=== PATIENT | male | born 1960 | race Caucasian/White ===

== ENCOUNTER 2025-04-23 10:40 | Day surgery (SDC) | payer MEDICARE ==
[~2025-04-23] VITALS: Ht 185.4 cm; Wt 129.5 kg
[2025-04-23] VITALS (9 sets, daily range): BP systolic 92–106; BP diastolic 55–79; PULSE 60–64; RESP 14–17; TEMP 98.2; O2SAT 95
[2025-04-23] MEDS ORDERED: OXYGEN NASALCANN (11:33)
[2025-04-23] MEDS ORDERED: TRAZ-251 PO (11:34)
[2025-04-23] MEDS ORDERED: METO-411 PO (11:41)
[2025-04-23] MEDS ORDERED: METF-438 PO (11:41)
[2025-04-23] MEDS ORDERED: CITA20TA17 PO (11:42)
[2025-04-23] MEDS ORDERED: ATOR40TA72 PO (11:43)
[2025-04-23] MEDS ORDERED: PANT40TA54 PO (11:43)
[2025-04-23] MEDS ORDERED: FURO40TA4 PO (11:44)
[2025-04-23] MEDS ORDERED: LISI20TA28 PO (11:44)
[2025-04-23 11:45] LABS: CREATININE 1.35 MG/DL (0.60-1.10); TOTAL CARBON DIOXIDE 28.7 MMOL/L (24-32); eCRCL 61 ML/MIN; eGFR 53 ML/MIN
[2025-04-23] MEDS ORDERED: SPIR25TA5 PO (11:47)
[2025-04-23] MEDS ORDERED: AMIO200T72 PO (11:47)
[2025-04-23 11:48] LABS: APTT 31 SECONDS (22-32); INR 1.1 INR; MEAN PLATELET VOLUME 7.1 FL (7.4-10.4); RED CELL DISTRIBUTION WIDTH 15.3 % (11.5-14.5)
--- NOTE | 2025-04-23 12:18 | ELECTROCARDIOGRAPH REPORT ---
[facility] Test Date: 2025-04-23 Test Time: 12:18:00 Pat Name: JUAN GARCIA Department: [facility] Patient ID: [id number] Room: Gender: M Business Affairs Manager: YENIFER : 1960 Requested By: DELFINA CONTRERAS Order Number: [id number] Reading MD: Dr. DARIA Pendleton Measurements Intervals [place] Rate: 60 P: 53 NC: 134 QRS: 189 QRSD: 149 T: 80 QT: 478 QTc: 478 Interpretive Statements Atrial-ventricular dual-paced rhythm No further analysis attempted due to paced rhythm Electronically Signed On 04-24-2025 12:33:[address] DARIA Pendleton Please click the below link to view image of tracing.
[2025-04-23] MEDS ORDERED: fentaNYL/PF 50MCG/1 ML 2ML syringe ONE (13:04)
[2025-04-23] MEDS ORDERED: verapamil 2.5 mg/ml inj IV ONE (13:04)
[2025-04-23] MEDS ORDERED: midazolam 1 mg/ML 2ml injection ONE (13:04)
[2025-04-23] MEDS ORDERED: heparin 1,000unit/ml 10ml vial 10 ML ONE (13:04)
[2025-04-23] MEDS ORDERED: LIDOcaine 1% (10mg/ml) 2ml vial ONE (13:04)
[2025-04-23] MEDS ORDERED: HYDROcodone/acetaminophen 10/325mg tab PO PRN (14:30)
[2025-04-23] MEDS ORDERED: HYDROcodone/acetaminophen 5mg/325mg tablet PO PRN (14:30)
--- NOTE | 2025-04-23 14:53 | CARDIAC CATH REPORT ---
Cardiac Cath Report Providers to CC CC: DAVID CONTRERAS MD Procedure Comments: 1. Left Heart Catheterization 2. Selective Coronary Angiography 3. Right Radial Artery Access Brief History/Indications: 65yo man with HTN, HLD, HFrEF, CAD(s/p prior PCI LAD, RCA) with continued depressed LVEF referred for evaluation. Techniques: HEMODYNAMICS: LV: 103/5 mmHg LVEDP: 10 mmHg Ao: 103/67, MAP 80 mmHg CORONARY ARTERIES: Rt Dominant LMCA: Luminal Irregularities LAD: 100% ISR of ostial LAD stent. Fills via Lt-Lt and Rt-Lt collaterals D1: Ostial 80% stenosis LCx: Prox 30% stenosis. OM1: 100% occluded. Fills via Lt-Lt collaterals OM2: Luminal Irregularities OM3: Luminal Irregularities RCA: Patent [id number] RCA stents with mild-mod ISR PDA: Luminal Irregularities PL: Luminal Irregularities Findings Findings: 1. Multivessel CAD with 100% occluded ostal LAD, OM1 and 80% D1 stenosis 2. RRA Access, closed with VascBand RECOMMENDATIONS: 1. Recommend CT surgery evaluation given 100% ISR of ostial LAD stent and depressed LVEF 2. Cont uptitration of max-tolerated GDMT DELFINA CONTRERAS MD Apr 23, 2025 14:53
== END 2025-04-23 17:15 | disposition home or self-care (01) ==
LOC: SSTAY O 10:40
PROVIDERS: ATTEND Student in an Organized Health Care Education/Training Program
DX: I25.10 Atherosclerotic heart disease of native coronary artery without angina pectoris (principal); I11.0 Hypertensive heart disease with heart failure; I48.91 Unspecified atrial fibrillation; I50.22 Chronic systolic (congestive) heart failure; E11.9 Type 2 diabetes mellitus without complications; Z79.899 Other long term (current) drug therapy; Z98.890 Other specified postprocedural states; Z88.8 Allergy status to other drugs, medicaments and biological substances
CPT/HCPCS: 36415; 80048; 85025; 85610; 85730; 93005; 93458; 99152; 99153; A4615; A6258; A6402; C1894; J1644; J2003; J2250; J3010; J3490; J7030; Q0163; Q9967; Z7610

== ENCOUNTER 2025-05-27 09:44 | Inpatient (IN) | payer MEDICARE ==
[2025-05-26 13:36] LABS: MEAN PLATELET VOLUME 6.8 FL (7.4-10.4); PRE OP HEMATOCRIT 50.4 % (42.0-52.0); PRE OP HEMOGLOBIN 17.1 g/dL (14.0-17.9); PRE OP PLATELET COUNT 278 X10'3 (140-440); PRE OP WHITE BLOOD COUNT 11.0 10'3 (4.8-10.8); RED CELL DISTRIBUTION WIDTH 14.4 % (11.5-14.5)
[2025-05-26 13:38] LABS: LEUKOCYTE ESTERASE ,URINE NEGATIVE (Neg); NITRITES, URINE NEGATIVE (Neg); OCCULT BLOOD,URINE NEGATIVE (Neg)
--- NOTE | 2025-05-26 13:41 | ELECTROCARDIOGRAPH REPORT ---
[facility] Test Date: 2025-05-26 Test Time: 13:40:13 Pat Name: JUAN GARCIA Department: PRE/OP CARDIOLOGY Room: [facility] 2008 Gender: M Director Digital Sales: zack : 1960 Requested By: MAXIMO DENNIS Order Number: [id number] Reading MD: Dr. DARIA Pendleton Measurements Intervals [place] Rate: 66 P: 19 AK: 175 QRS: 184 QRSD: 152 T: 94 QT: 447 QTc: 469 Interpretive Statements Atrial-sensed ventricular-paced complexes No further analysis attempted due to paced rhythm Electronically Signed On 05-28-2025 20:18:[address] DARIA Pendleton Please click the below link to view image of tracing.
[2025-05-26 13:43] LABS: UA COLLECTION TYPE CLN CATCH MIDSTREAM
[2025-05-26 13:50] LABS: PRE OP INR 1.0 INR; PRE OP PARTIAL THROMB. TIME 32.0 SECONDS (22-32); PRE OP PROTIME 10.5 SECONDS (9.0-12.0)
[2025-05-26 13:53] LABS: CREATININE 1.47 MG/DL (0.60-1.10); PRE OP ALT 31 U/L (30-65); PRE OP ANION GAP 6 (8-16); PRE OP AST 17 U/L (10-37); PRE OP BILIRUB, TOTAL 0.6 MG/DL (0.0-1.0); PRE OP GLUCOSE 110 MG/DL (70-104); PRE OP POTASSIUM 3.8 MMOL/L (3.4-5.1); PRE OP SODIUM 138 MMOL/L (135-145); TOTAL CARBON DIOXIDE 33.5 MMOL/L (24-32); eGFR 48 ML/MIN
[2025-05-26 14:11] LABS: ABG BASE EXCESS 3.3 mmol/L (-2.0-3.0); ABG HCO3 26.6 mmol/L (21.0-28.0); ABG OXYGEN SATURATION 88.5 % (94.0-98.0); ABG PCO2 (T) 36.5 mmHg (35.0-48.0); ABG PH (T) 7.480 (7.350-7.450); ABG PO2 (T) 52.0 mmHg (83.0-108.0); ALLEN'S TEST POSITIVE; FCOHb 0.7 % (0.5-1.5); FHHb 11.4 % (0.0-5.0); FIO2 21.0 mmHg/%; FMetHb 0.3 % (0.0-1.5); FO2Hb 87.6 % (94.0-98.0); MODE ROOM AIR; PATIENT TEMPERATURE 37.0; TOTAL HEMOGLOBIN 17.4 G/dl (13.5-17.5)
--- NOTE | 2025-05-26 14:21 | RADIOLOGY REPORT ---
EXAM: DI CHEST,TWO VIEWS CLINICAL HISTORY: Pain COMPARISON: None TECHNIQUE: Frontal and lateral view of the chest was obtained FINDINGS: Lines and Tubes: Cardiac pacemaker projects over left chest wall. Lungs: No focal consolidation. Pleura: No effusion. No pneumothorax. Cardiomediastinal contours: Unremarkable Bones: No acute osseous abnormality. IMPRESSION: No acute cardiopulmonary disease.
[2025-05-26 14:22] VITALS: PULSE 60; RESP 15; O2SAT 89
--- NOTE | 2025-05-26 15:04 | PROCEDURE NOTE - Respiratory ---
Procedure Note-Respiratory Providers to CC Copies To 1: MAXIMO DENNIS III, MD Procedure Name: This is a spirometry study dated May 26 2025. Spirometry measurements: There is slight reduction in both the forced vital capacity and the FEV1 measurements. The FEV1 ratio is somewhat elevated. Several of the flow rate measurements are showing reduction. Bronchodilator was not given as part of the study. Conclusion: This study shows abnormality. There is a mixed picture which includes elements of both mild obstructive ventilatory defect together with mild restrictive ventilatory defect. We have no previous studies for comparison. An arterial blood gas was drawn from this patient while the patient was breathing ambient air. The blood pH shows borderline alkalosis. The pCO2 is normal. There is significant room air hypoxemia with the room air measuring at 52 mmHg. Also noted is borderline polycythemia with the hemoglobin measuring at 17.4 grams/deciliter. MIRANDA SPENCER MD May 26, 2025 15:04
--- NOTE | 2025-05-26 17:16 | VASCULAR REPORT ---
BILATERAL LOWER EXTREMITY VENOUS DUPLEX REASON FOR EXAM: Preoperative venous mapping. TECHNIQUE: Grayscale and duplex imaging of the bilateral lower extremities is performed. COMPARISON: None FINDINGS: The bilateral great saphenous veins are compressible and demonstrate normal color Doppler s ignal. Measurements of the right great saphenous vein is as follows: Upper Thigh: 4 mm diameter Lower Thigh: 4 mm diameter Upper Calf: 3 mm diameter Lower Calf: 3 mm diameter Measurements of the left great saphenous vein is as follows: Upper Thigh: 3 mm diameter Lower Thigh: Branches into numerous small branches in the mid thigh measuring 2 mm or less. IMPRESSION: No evidence of great saphenous vein thrombosis. GSV measurement as listed above.
--- NOTE | 2025-05-26 19:50 | VASCULAR REPORT ---
CAROTID DOPPLER ULTRASOUND HISTORY: Preop COMPARISON: None TECHNIQUE: Real time hernandez scale, color Doppler, and spectral duplex images are obtained through the c arotid and vertebral arteries. Findings: Peak systolic velocity right internal carotid artery is 62 cm/s and right common carotid artery is 53 cm/s. Ratio is 1.07. Antegrade flow noted in right vertebral artery. Mild atherosclerotic plaque not ed within the right carotid arterial system. Peak systolic velocity left internal carotid artery is 58 cm/s and left common carotid artery is 115 cm/s. Ratio is 0.8. Antegrade flow noted in left vertebral artery. [id number] atherosclerotic p laque noted within the left carotid arterial system. Impression: 1. No evidence of hemodynamically significant stenosis within the bilateral carotid arterial systems. 2. Antegrade flow within bilateral vertebral arteries.
[2025-05-27] VITALS (12 sets, daily range): BP systolic 99–118; BP diastolic 44–72; PULSE 60–134; RESP 14–31; TEMP 97.5; O2SAT 90–97
[~2025-05-27] VITALS: Ht 185.4 cm; Wt 133.0 kg
[2025-05-27] MEDS: Cefazolin 3 GM/100ML NS IVPB 100 ML IV ONE (05:30)
[2025-05-27] MEDS: metoprolol tartrate 12.5mg (1/2 tablet) PO ONE (05:30)
[~2025-05-27 09:44] MED LIST: ATOR40TA72 PO; BUPIVAcaine 0.5% inj/PF 30 ML ONE; CITA20TA17 PO; FURO40TA4 PO; Insulin Reg/NS 100units/100mL 100 ML IV SCH; LISI20TA28 PO; METF-438 PO; METO-411 PO; OXYGEN NASALCANN; PANT40TA54 PO; SPIR25TA5 PO; TRAZ-251 PO; dextrose 50%-water 50ml dispensing syringe IV PRN; insulin glargine (Lantus) pen - multi-dose SQ PRN; vancomycin 1,000mg inj ONE
[2025-05-27] MEDS: ringers solution, lacted 1,000 ML IV SCH (10:32)
[2025-05-27] MEDS: mupirocin 2% nasal ointment 1gm UD NS ONE (10:32)
[2025-05-27] MEDS: VANCOMYCIN/H2O 1.5g/300mL PB 300 ML IV ONE (10:33)
[2025-05-27] MEDS: midazolam 1 mg/ML 2ml injection IV ONE (12:25)
[2025-05-27] MEDS ORDERED: SUfentanil 50mcg/ml 1ml amp IV ONE (13:27)
[2025-05-27] MEDS ORDERED: MIDAZolam 1mg/ml 10ml vial ONE (13:27)
[2025-05-27 14:12] LABS: ABG BASE EXCESS -1.3 mmol/L (-2.0-3.0); ABG HCO3 25.1 mmol/L (21.0-28.0); ABG OXYGEN SATURATION 95.5 % (94.0-98.0); ABG PCO2 48.2 mmHg (35.0-48.0); ABG PH 7.335 (7.350-7.450); ABG PO2 83.4 mmHg (83.0-108.0); CL (ABG) 102 mmol/L (98-107); FCOHb 0.9 % (0.5-1.5); FHHb 4.4 % (0.0-5.0); FMetHb 0.3 % (0.0-1.5); FO2Hb 94.4 % (94.0-98.0); GLUCOSE (ABG) 118 mg/dl (65-95); IONIZED CA (ABG) 1.15 mmol/L (1.15-1.33); K (ABG) 4.0 mmol/L (3.40-4.50); TOTAL HEMOGLOBIN 16.3 G/dl (13.5-17.5)
[2025-05-27 14:38] LABS: ACT @ 1.70 U 307 SEC (193-297); ACT @ 2.84 U 487 SEC (260-420); BASELINE ACT 138 SEC (101-148); PATIENT WEIGHT 131.0 KG
[2025-05-27 15:03] LABS: ABG BASE EXCESS VENOUS -0.2 mmol/L (-2.0-3.0); ABG HCO3 VENOUS 26.1 mmol/L (22.0-29.0); ABG OXYGEN SATURATION VENOUS 82.8 % (60.0-85.0); ABG PCO2 VENOUS 49.3 mmHg (38.0-54.0); ABG PH (VENOUS) 7.341 (7.320-7.430); ABG PO2 VENOUS 49.5 mmHg (23.0-48.0); CL (ABG) 100 mmol/L (98-107); FCOHb VENOUS 0.2 % (0.5-1.5); FHHb VENOUS 17.1 %; FMetHb VENOUS 0.3 % (0.5-1.5); FO2Hb VENOUS 82.4 % (0-80.0); GLUCOSE (ABG) 113 mg/dl (65-95); IONIZED CA (ABG) 0.96 mmol/L (1.15-1.33); K (ABG) 3.6 mmol/L (3.40-4.50); TOTAL HEMOGLOBIN 11.8 G/dl (13.5-17.5)
[2025-05-27 15:07] LABS: ABG BASE EXCESS -0.3 mmol/L (-2.0-3.0); ABG HCO3 25.5 mmol/L (21.0-28.0); ABG OXYGEN SATURATION 99.5 % (94.0-98.0); ABG PCO2 46.4 mmHg (35.0-48.0); ABG PH 7.358 (7.350-7.450); CL (ABG) 102 mmol/L (98-107); FCOHb 0.1 % (0.5-1.5); FHHb 0.5 % (0.0-5.0); FMetHb 0.3 % (0.0-1.5); FO2Hb 99.1 % (94.0-98.0); GLUCOSE (ABG) 116 mg/dl (65-95); IONIZED CA (ABG) 1.02 mmol/L (1.15-1.33); K (ABG) 3.5 mmol/L (3.40-4.50); TOTAL HEMOGLOBIN 12.0 G/dl (13.5-17.5)
[2025-05-27 15:40] LABS: ABG BASE EXCESS -1.6 mmol/L (-2.0-3.0); ABG HCO3 23.6 mmol/L (21.0-28.0); ABG OXYGEN SATURATION 99.4 % (94.0-98.0); ABG PCO2 41.6 mmHg (35.0-48.0); ABG PH 7.371 (7.350-7.450); ABG PO2 282.7 mmHg (83.0-108.0); CL (ABG) 101 mmol/L (98-107); FCOHb 0.1 % (0.5-1.5); FHHb 0.6 % (0.0-5.0); FMetHb 0.1 % (0.0-1.5); FO2Hb 99.2 % (94.0-98.0); GLUCOSE (ABG) 135 mg/dl (65-95); IONIZED CA (ABG) 1.03 mmol/L (1.15-1.33); K (ABG) 4.0 mmol/L (3.40-4.50); TOTAL HEMOGLOBIN 13.3 G/dl (13.5-17.5)
[2025-05-27 15:52] LABS: ACTIVATED CLOTTING TIME 710.0 SEC (101-148)
[2025-05-27 16:05] LABS: ABG BASE EXCESS -2.6 mmol/L (-2.0-3.0); ABG HCO3 22.9 mmol/L (21.0-28.0); ABG OXYGEN SATURATION 99.3 % (94.0-98.0); ABG PCO2 42.6 mmHg (35.0-48.0); ABG PH 7.349 (7.350-7.450); ABG PO2 277.8 mmHg (83.0-108.0); CL (ABG) 102 mmol/L (98-107); FCOHb 0.1 % (0.5-1.5); FHHb 0.7 % (0.0-5.0); FMetHb 0.2 % (0.0-1.5); FO2Hb 99.0 % (94.0-98.0); GLUCOSE (ABG) 157 mg/dl (65-95); IONIZED CA (ABG) 1.03 mmol/L (1.15-1.33); K (ABG) 3.9 mmol/L (3.40-4.50); TOTAL HEMOGLOBIN 13.4 G/dl (13.5-17.5)
[2025-05-27 16:16] LABS: ACTIVATED CLOTTING TIME 584.0 SEC (101-148)
[2025-05-27 16:30] LABS: ABG BASE EXCESS 0.0 mmol/L (-2.0-3.0); ABG HCO3 25.7 mmol/L (21.0-28.0); ABG OXYGEN SATURATION 99.2 % (94.0-98.0); ABG PCO2 46.0 mmHg (35.0-48.0); ABG PH 7.365 (7.350-7.450); ABG PO2 241.6 mmHg (83.0-108.0); CL (ABG) 101 mmol/L (98-107); FCOHb 0.2 % (0.5-1.5); FHHb 0.8 % (0.0-5.0); FMetHb 0.2 % (0.0-1.5); FO2Hb 98.8 % (94.0-98.0); GLUCOSE (ABG) 176 mg/dl (65-95); IONIZED CA (ABG) 1.23 mmol/L (1.15-1.33); K (ABG) 3.8 mmol/L (3.40-4.50); TOTAL HEMOGLOBIN 13.2 G/dl (13.5-17.5)
[2025-05-27 17:06] LABS: ABG BASE EXCESS -0.9 mmol/L (-2.0-3.0); ABG HCO3 25.6 mmol/L (21.0-28.0); ABG PCO2 50.3 mmHg (35.0-48.0); ABG PH 7.324 (7.350-7.450); CL (ABG) 103 mmol/L (98-107); FCOHb 0.4 % (0.5-1.5); FHHb 19.5 % (0.0-5.0); FMetHb 0.2 % (0.0-1.5); FO2Hb 79.9 % (94.0-98.0); GLUCOSE (ABG) 174 mg/dl (65-95); IONIZED CA (ABG) 1.23 mmol/L (1.15-1.33); K (ABG) 3.4 mmol/L (3.40-4.50); TOTAL HEMOGLOBIN 12.2 G/dl (13.5-17.5)
[2025-05-27 17:09] LABS: ACTIVATED CLOTTING TIME 105 SEC (101-148)
[2025-05-27 17:16] LABS: MEAN PLATELET VOLUME 6.7 FL (7.4-10.4); RED CELL DISTRIBUTION WIDTH 14.2 % (11.5-14.5)
[2025-05-27] MEDS: Insulin Reg/NS 100units/100mL 100 ML IV SCH ×2 (17:30→17:56)
[2025-05-27] MEDS ORDERED: bisacodyl 10mg suppository rectal RC PRN (17:30)
[2025-05-27] MEDS ORDERED: HYDROcodone/acetaminophen 10/325mg tab PO PRN ×2 (17:30)
[2025-05-27] MEDS ORDERED: magnesium hydroxide 30ml (MOM) UD suspension PO PRN (17:30)
[2025-05-27] MEDS ORDERED: potassium Cl 40MEQ/270ML bag 250 ML IV PRN (17:30)
[2025-05-27] MEDS ORDERED: insulin glargine (Lantus) pen - multi-dose SQ PRN (17:30)
[2025-05-27] MEDS ORDERED: potassium Cl 40MEQ/1/2NS 520ml 520 ML IV PRN (17:30)
[2025-05-27] MEDS ORDERED: ondansetron/PF 4mg/2ml inj IV PRN (17:30)
[2025-05-27] MEDS ORDERED: potassium CL 10mEq/100ml bag 100 ML IV PRN (17:30)
[2025-05-27] MEDS ORDERED: sodium phosphate inj. 30 MMOL in dextrose 5%-water 250 ML IV PRN (17:30)
[2025-05-27] MEDS ORDERED: dextrose 50%-water 50ml dispensing syringe IV PRN (17:30)
[2025-05-27] MEDS ORDERED: niCARDipine-NS 40mg/200ml IVPB 200 ML IV PRN (17:30)
[2025-05-27] MEDS ORDERED: morphine 4 MG/ML inj SYRINge IV PRN (17:30)
[2025-05-27] MEDS ORDERED: potassium Cl 20 mEq SR tablet PO PRN (17:30)
[2025-05-27] MEDS ORDERED: metoclopramide 5 mg/ml inj IV PRN (17:30)
[2025-05-27] MEDS: nitroGLYCERIN-Tridil 50MG/D5W 250 ML IV SCH (17:30)
[2025-05-27] MEDS ORDERED: mineral oil 133ml enema RC PRN (17:30)
--- NOTE | 2025-05-27 17:41 | POSTOPERATIVE RECORDS ---
Postoperative Records Providers to CC ~ Date of Procedure: May 27, 2025 Problems: (1) Severe pulmonary hypertension (2) Coronary artery disease (3) Chronic left ventricular systolic heart failure Post-Operative Diagnosis SAME as PRE-Op Procedure Performed CABGx4,BAEZ Surgeon: Dr. Silvano Palacios Vinyl Cutter Dr. Alexander Matthew and Forest Hahn PA-C Anesthesiologist: Reinaldo Ndiaye Type of Anesthesia: General Findings: Systemic pulmonary hypertension with severe left ventricular dysfunction. Vein was of adequate size. RICARDO was a 2 mm vessel with satisfactory flow. The LAD was a heavily diseased 2 mm vessel as was the diagonal the ramus was a 1.5 mm vessel and heavily diseased and the PDA was a 2-1/2 mm vessel moderately diseased. the patient had anterior apical scarring and thinning. Complications None Estimated Blood Loss: 200 mL Specimen Removed: None Counts reported as correct: Yes Visit Coding Cardiology Date of Service: May 27, 2025 Billing Provider: SILVANO PALACIOS III, MD Cardiology Evaluation and Elvia: NOT BILLABLE SILVANO PALACIOS III, MD May 27, 2025 17:41
[2025-05-27] MEDS ORDERED: propofol inj 20 ML IV ONE (17:47)
[2025-05-27] MEDS ORDERED: rocuronium 10mg/ml inj IV ONE ×3 (17:47)
[2025-05-27] MEDS ORDERED: ePHEDrine 50MG/ML INJ. ONE (17:47)
[2025-05-27] MEDS: DOCUMENT DATE & TIME OF BETA-BLOCKER PO ONE (17:49)
[2025-05-27 18:07] LABS: ABG BASE EXCESS 0.1 mmol/L (-2.0-3.0); ABG HCO3 26.6 mmol/L (21.0-28.0); ABG OXYGEN SATURATION 91.1 % (94.0-98.0); ABG PCO2 (T) 49.4 mmHg (35.0-48.0); ABG PH (T) 7.346 (7.350-7.450); ABG PO2 (T) 63.3 mmHg (83.0-108.0); FCOHb 1.1 % (0.5-1.5); FHHb 8.8 % (0.0-5.0); FIO2 80.0 mmHg/%; FMetHb 0.1 % (0.0-1.5); FO2Hb 90.0 % (94.0-98.0); MODE VENT - SIMV/VC; PATIENT TEMPERATURE 36.5; PEEP 5 cm H2O; RESPIRATORY RATE 14 b/min; TIDAL VOLUME 600 mL; TOTAL HEMOGLOBIN 12.9 G/dl (13.5-17.5)
--- NOTE | 2025-05-27 18:08 | ELECTROCARDIOGRAPH REPORT ---
[facility] Test Date: 2025-05-27 Test Time: 18:06:49 Pat Name: JUAN GARCIA Department: [facility] Patient ID: [id number] Room: [facility] 2008 A Gender: M Loan Teller: HOLLANDJACOB : 1960 Requested By: MAXIMO DENNIS Order Number: [id number] Reading MD: Dr. DARIA Pendleton Measurements Intervals [place] Rate: 118 P: 133 IA: 88 QRS: 226 QRSD: 128 T: 59 QT: 334 QTc: 469 Interpretive Statements Ventricular-paced rhythm No further analysis attempted due to paced rhythm Electronically Signed On 05-28-2025 20:19:[address] DARIA Pendleton Please click the below link to view image of tracing.
[2025-05-27] MEDS: propofol 1000mg/100ml bottle 100 ML IV ONE (18:13)
[2025-05-27] MEDS: albumin (Human) 5% 250ml 250 ML IV PRN (18:15)
[2025-05-27 18:16] LABS: MEAN PLATELET VOLUME 6.9 FL (7.4-10.4); RED CELL DISTRIBUTION WIDTH 14.7 % (11.5-14.5)
[2025-05-27 18:30] LABS: APTT 27 SECONDS (22-32); INR 1.3 INR
[2025-05-27 18:30] LABS: CREATININE 1.01 MG/DL (0.60-1.10); TOTAL CARBON DIOXIDE 27.0 MMOL/L (24-32); eCRCL 74 ML/MIN; eGFR 74 ML/MIN
[2025-05-27 18:36] LABS: PHOSPHORUS 2.9 MG/DL (2.3-4.5)
[2025-05-27] MEDS: FENTANYL-0.9 % NACL/PF 100 ML IV SCH (18:48)
[2025-05-27] MEDS: propofol 1000mg/100ml bottle 100 ML IV SCH (18:48)
--- NOTE | 2025-05-27 19:06 | RADIOLOGY REPORT ---
CHEST RADIOGRAPH Indication: POST OP Technique: Single frontal view of the chest was obtained Comparison: DI CHEST,TWO VIEWS on DOS: 05/26/25 FINDINGS: Lines and Tubes: Endotracheal tube, enteric catheter, right central venous catheter, mediastinal drai n and left chest tube in satisfactory position. Mobile-Jacqueline catheter overlies the right pulmonary arter y. Lungs: Multifocal airspace disease. Pleura: No effusion. No pneumothorax. Cardiomediastinal contours: Unremarkable Bones: No acute osseous abnormality. IMPRESSION: Mobile-Jacqueline catheter appears slightly deep projecting over the right main pulmonary artery. Reposition ing may be considered. Clinical correlation advised.
[2025-05-27] MEDS: magnesium sulf-water 4G/100mL 100 ML IV PRN (19:13)
[2025-05-27] MEDS: potassium Cl 20mEq/100mL bag 100 ML IV PRN (19:13)
[2025-05-27] MEDS: vancomycin/NS 1 GM ADD-VANTAGE 250 ML IV SCH (19:16)
[2025-05-27] MEDS: mupirocin 2% nasal ointment 1gm UD NS SCH (20:02)
[2025-05-27 20:05] LABS: ABG BASE EXCESS -1.9 mmol/L (-2.0-3.0); ABG HCO3 23.0 mmol/L (21.0-28.0); ABG OXYGEN SATURATION 96.8 % (94.0-98.0); ABG PCO2 (T) 38.3 mmHg (35.0-48.0); ABG PH (T) 7.393 (7.350-7.450); ABG PO2 (T) 86.7 mmHg (83.0-108.0); FCOHb 1.1 % (0.5-1.5); FHHb 3.2 % (0.0-5.0); FIO2 70.0 mmHg/%; FMetHb 0.3 % (0.0-1.5); FO2Hb 95.4 % (94.0-98.0); MODE SIMV; PATIENT TEMPERATURE 36.1; PEEP 8 cm H2O; RESPIRATORY RATE 16 b/min; TIDAL VOLUME 600 mL; TOTAL HEMOGLOBIN 12.3 G/dl (13.5-17.5)
[2025-05-27] MEDS: COMMUNICATION ORDER 1 EA MISC MC ONE (20:18)
[2025-05-27] MEDS: magnesium sulf-water 2g/50mL 50 ML IV PRN (20:39)
[2025-05-27 22:49] LABS: MEAN PLATELET VOLUME 6.7 FL (7.4-10.4); RED CELL DISTRIBUTION WIDTH 14.1 % (11.5-14.5)
[2025-05-27 23:03] LABS: CREATININE 1.38 MG/DL (0.60-1.10); PHOSPHORUS 1.7 MG/DL (2.3-4.5); TOTAL CARBON DIOXIDE 25.5 MMOL/L (24-32); eCRCL 60 ML/MIN; eGFR 52 ML/MIN
[2025-05-27] MEDS: ceFAZolin/D5W- 1GM premix 50 ML IV SCH (23:25)
[2025-05-27] MEDS: sodium phosphate in D5W IVPB 250 ML IV ONE (23:47)
[2025-05-27] MEDS: sodium phosphate inj. 15 MMOL in dextrose 5%-water 250 ML IV PRN (23:47)
[2025-05-28] VITALS (36 sets, daily range): BP systolic 98–129; BP diastolic 46–58; PULSE 77–119; RESP 16–35; O2SAT 90–97
[2025-05-28 01:39] LABS: MEAN PLATELET VOLUME 6.4 FL (7.4-10.4); RED CELL DISTRIBUTION WIDTH 14.0 % (11.5-14.5)
[2025-05-28 02:11] LABS: CREATININE 1.47 MG/DL (0.60-1.10); TOTAL CARBON DIOXIDE 23.8 MMOL/L (24-32); eCRCL 56 ML/MIN; eGFR 48 ML/MIN
[2025-05-28 03:13] LABS: PHOSPHORUS 1.8 MG/DL (2.3-4.5)
[2025-05-28 03:31] LABS: ABG BASE EXCESS -1.8 mmol/L (-2.0-3.0); ABG HCO3 23.1 mmol/L (21.0-28.0); ABG OXYGEN SATURATION 95.8 % (94.0-98.0); ABG PCO2 (T) 39.8 mmHg (35.0-48.0); ABG PH (T) 7.381 (7.350-7.450); ABG PO2 (T) 83.0 mmHg (83.0-108.0); FCOHb 0.7 % (0.5-1.5); FHHb 4.2 % (0.0-5.0); FIO2 65.0 mmHg/%; FMetHb 0.3 % (0.0-1.5); FO2Hb 94.8 % (94.0-98.0); MODE VENT - SIMV; PATIENT TEMPERATURE 37.2; PEEP 8 cm H2O; RESPIRATORY RATE 16 b/min; TIDAL VOLUME 600 mL; TOTAL HEMOGLOBIN 11.1 G/dl (13.5-17.5)
[2025-05-28] MEDS: albumin (Human) 5% 250ml 250 ML IV ONE ×3 (03:37→22:12)
[2025-05-28] MEDS: DOBUTamine-DoBUTrex 500mg/D5W 250 ML IV PRN (05:38)
--- NOTE | 2025-05-28 06:45 | RADIOLOGY REPORT ---
CHEST RADIOGRAPH Indication: POST OP Technique: Single frontal view of the chest was obtained Comparison: DI CHEST,SINGLE VIEW on DOS: 05/27/25, DI CHEST,TWO VIEWS on DOS: 05/26/25 FINDINGS: Lines and Tubes: The endotracheal tube terminates 9 cm above the nisa. Repositioning is recommende d. Left chest tube, right [place]-Jacqueline catheter with tip terminating in the region of the right pulmonar y artery and AICD as well as right central venous catheter are unchanged. The enteric tube courses be low the left hemidiaphragm and the tip extends outside the field of view. Lungs: Bilateral airspace disease is similar to prior study. Pleura: No effusion. No pneumothorax. Cardiomediastinal contours: Unremarkable Bones: No acute osseous abnormality. IMPRESSION: 1. Endotracheal tube terminates 9 cm above the nisa. Advancement is recommended. Labadie-Jacqueline cathete r tip terminates deep in the right atrium similar to prior study. Clinical correlation advised. 2. Bilateral airspace disease which may reflect edema or pneumonia similar to prior study.
[2025-05-28] MEDS: metoprolol tartrate 12.5mg (1/2 tablet) PO SCH (07:16)
--- NOTE | 2025-05-28 08:09 | PROGRESS NOTE ---
Progress Note CV Providers to CC ~ Antibiotics Ordered?: No Subjective Subjective S/P CABG x 4 POD # 1. Sedated, on vent as chest remains open. Fentanyl and propofol for pain/ sedation. Continues on dobutamine and some levophed. CO 9.3, CI 3.7. Creat 1.47 which was baseline. Objective Vitals Vital Signs Date Time Temp Pulse Resp B/P (MAP) Pulse Ox O2 Delivery O2 Flow Rate FiO2 05/28/25 07:09 93 35 96 60 05/28/25 05:00 98.8 107/49 (68) Mechanical Ventilator 106/48 (69) 05/26/25 14:22 0 Lab Results: 05/28/25 0130 05/28/25 0130 Objective Lungs - a few coarse BS Heart - RRR, SR Abd/extr - OK Incisions - Chest: Ioban intact, no blood collection noted. Coagulation Studies Laboratory Tests Test 05/27/25 14:18 05/27/25 17:05 05/27/25 17:13 05/27/25 17:20 Patient Sex (Coag) M Patient Height (Coag) 185cm Patient Weight (Coag) 131.0 KG Patient Blood Volume 8505 ML Pump Volume 1500 ML Total Blood Volume 14342 ML Projected Heparin Concentration 1.7 MG/KG Heparin [place] 146 Calculated Heparin Bolus 25871 UNITS Activated Coagulation Time Baseline 138 SEC (101-148) Activated Coag Time 1.70 U/mL 307 SEC (193-297) H Activated Coag Time 2.84 U/mL 487 SEC (260-420) H Coagulation Comments Coagulation Clinical Comments Heparin Level (COAG) 0 MG/KG Calculated Heparin Req (Hep Assay) 99891 UNITS Calculated Protamine Req (Hep Assay 0 MG Activated Clotting Time 105 SEC (101-148) Prothrombin Time 12.7 SECONDS (9.0-12.0) H INR International Normalized Ratio 1.3 INR Activated Partial Thromboplast Time 27 SECONDS (22-32) Fibrinogen 269 MG/DL (177-424) Cardiac Rhythm: Sinus Rhythm, V Paced Problem\Assessment\Plan Additional Plan POD # 1 Good CI on current Rx FiO2 60%. Preop room air PO2 52%. Planning for sternal closure. Sepsis Screening Reassessment Date: May 28, 2025 Supervising Co-signing Provider: VINCENZO Mg May 28, 2025 08:09
[2025-05-28 09:22] LABS: ABG OXYGEN SATURATION 80.4 % (94.0-98.0); ABG PO2 49.0 mmHg (83.0-108.0)
[2025-05-28 09:22] LABS: ABG PO2 313.0 mmHg (83.0-108.0)
--- NOTE | 2025-05-28 09:27 | CARDIOLOGY REPORT ---
APPROVED REPORT EXAM: Transesophageal echocardiogram with color flow Doppler. Study contains both pre- and post-op i magedavid. Patient Location: [facility] Blood Pressure: 110/43 mmHg Heart Rate: 90 bpm Indications Coronary Artery Disease CABG x 4 DANIEL Probe Passed by Oracio Ndiaye MD AERODYNAMIC CONSULTANT: Gita Pierce MD / Surgeon: Tawnya Palacios MD Previous Echo: , CVC, EF: 20-25; m TR; mod LAE LEFT VENTRICLE PRE-OP: Normal LV size and wall thickness. Overall systolic function is severely decreased. LVEF is 2 0%. POST-OP: LVEF is estimated at 20-25% with administration is Levophed at 0.05 mcg/kg/min. RIGHT VENTRICLE PRE-OP: RV is normal size and function. POST-OP: Unchanged. ATRIA PRE-OP: Left atrium appears moderately dilated. Left atrial appendage is visualized in multiple plane s and appears normal without debris. Left upper pulmonary vein identified and isolated by 2D and colo r Doppler. POST-OP: Unchanged. AORTIC VALVE PRE-OP: Trileaflet AV appears mildly sclerotic without stenosis. No insufficiency. POST-OP: Unchanged . MITRAL VALVE PRE-OP: Mild mitral annular calcification without stenosis. Mild to moderate regurgitation. POST-OP: Trace regurgitation present. TRICUSPID VALVE PRE-OP: The tricuspid valve is normal in structure with mild regurgitation. POST-OP: Trace regurgitat ion present. PULMONIC VALVE PRE-OP: The pulmonary valve is normal in structure with physiologic insufficiency. [place]-Jacqueline catheter in the right heart across the pulmonic valve. POST-OP: Unchanged. GREAT VESSELS PRE-OP: The aortic root is normal in size. POST-OP: Unchanged. PERICARDIUM PRE-OP: Normal pericardium. No effusion. POST-OP: Unchanged. CONCLUSION PRE-OP: Normal LV size and wall thickness. Overall systolic function is severely decreased. LVEF is 2 0%. POST-OP: LVEF is estimated at 20-25% with administration is Levophed at 0.05 mcg/kg/min. PRE-OP: RV is normal size and function. POST-OP: Unchanged. PRE-OP: Left atrium appears moderately dilated. L eft atrial appendage is visualized in multiple planes and appears normal without debris. Left upper p ulmonary vein identified and isolated by 2D and color Doppler. POST-OP: Unchanged. PRE-OP: Trileaflet AV appears mildly sclerotic without stenosis. No insufficiency. POST-OP: Unchanged. PRE-OP: Mild larry ral annular calcification without stenosis. Mild to moderate regurgitation. POST-OP: Trace regurgitat ion present. PRE-OP: The tricuspid valve is normal in structure with mild regurgitation. POST-OP: Tra ce regurgitation present. PRE-OP: Normal pericardium. No effusion. POST-OP: Unchanged. Conclusion PRE-OP: Normal LV size and wall thickness. Overall systolic function is severely decreased. LVEF is 20%. POST-OP: LVEF is estimated at 20-25% with administration is Levophed at 0.05 mcg/kg/min. PRE-OP: RV is normal size and function. POST-OP: Unchanged. PRE-OP: Left atrium appears moderately dilated. Left atrial appendage is visualized in multiple abel jeferson and appears normal without debris. Left upper pulmonary vein identified and isolated by 2D and co susu Doppler. POST-OP: Unchanged. PRE-OP: Trileaflet AV appears mildly sclerotic without stenosis. No insufficiency. POST-OP: Uncha nged. PRE-OP: Mild mitral annular calcification without stenosis. Mild to moderate regurgitation. POST-O P: Trace regurgitation present. PRE-OP: The tricuspid valve is normal in structure with mild regurgitation. POST-OP: Trace regurgi tation present. PRE-OP: Normal pericardium. No effusion. POST-OP: Unchanged.
[2025-05-28] MEDS: NORepinephrine 8mg/ 250ml NS 250 ML IV PRN (12:21)
[2025-05-28] MEDS ORDERED: vancomycin 1,000mg inj ONE (14:15)
[2025-05-28] MEDS ORDERED: isoflurane 100ml inhalation liquid IH ONE (14:50)
[2025-05-28] MEDS ORDERED: fentaNYL /PF 50mcg/ml 5ml ampule ONE (15:07)
[2025-05-28] MEDS ORDERED: MIDAZolam 1 MG/ML 5ML VIAL ONE (15:40)
[2025-05-28] MEDS ORDERED: rocuronium 10mg/ml inj IV ONE (15:41)
--- NOTE | 2025-05-28 16:08 | OPERATIVE REPORT ---
Operative Report Operative Report Cardiovascular surgery operative report 28 May 2025 Preoperative diagnosis: open sternum status post coronary artery bypass grafting, chronic atrial fibrillation Postop diagnosis: Same Procedure: Sternal closure, left atrial appendage clipping with 50 mm atrial clip Surgeon: Dr. Maximo Palacios patient care nursing assistant: Forest Hahn PA-C Anesthesia: General via endotracheal tube Complications: None EBL: 10 cc Procedure: The patient is taken to the operating room placed in supine posit ion. Following the administration of general anesthesia via the endotracheal tube the anterior chest and abdomen were prepped and draped sterilely. A sternal retractor was placed and any old clots within the mediastinum were irrigated free. The grafts were inspected. The vein grafts were widely patent. The left had a flow of 85-90 mL/minute with a PI of 2.9, the right graft had a PI of 1.7 with flows of 150. there was excellent flow in the RICARDO graft by Doppler. A lap was placed behind the left ventricle to expose the atrial appendage. It was sized and a 50 mm atrial clip was chosen. This was deployed across the base of the appendage for exclusion. The flap was then removed to allow the heart to was no more resume its normal position. The mediastinum was copiously irrigated with warm antibiotic solution. The chest was then closed by reapproximating the sternum in midline with interrupted [id number] of 7. Stainless steel wire as well as zip fix sternal bands. The midline fascia, subcutaneous tissue and skin were closed in layers. Sterile dressings were applied and the chest tube was attached to water-seal. The patient was then returned to the ICU in critical but stable condition, having tolerated the procedure satisfactorily. There were no complications. Sponge, needle and instrument counts were correct x2 at the end of the case. MAXIMO PALACIOS III, MD May 28, 2025 16:08
[2025-05-28 16:54] LABS: MEAN PLATELET VOLUME 7.1 FL (7.4-10.4); RED CELL DISTRIBUTION WIDTH 14.4 % (11.5-14.5)
--- NOTE | 2025-05-28 17:04 | RADIOLOGY REPORT ---
EXAM: DI CHEST,SINGLE VIEW HISTORY: post sternal closure COMPARISON: DI CHEST,SINGLE VIEW on DOS: 05/28/25, DI CHEST,SINGLE VIEW on DOS: 05/27/25, DI CHEST,TWO VIEWS on DOS: 05/26/25 TECHNIQUE: Portable upright AP view of the chest was performed. FINDINGS: Endotracheal tube is re-identified with its tip 9.5 cm above the nisa. OG tube, postoperative hickey ges of CABG, left chest AICD, left chest loop recorder, mediastinal drains and left thoracostomy tube , and multiple right IJ central lines are re-identified. Lung volumes are somewhat low. No pneumothor ax. There is diffuse interstitial prominence throughout both lungs. The heart is enlarged. IMPRESSION: 1. Endotracheal tube tip is 9.5 cm above the nisa. This should be advanced 5 cm than repeat chest x -ray performed. 2. Cardiomegaly and recent postoperative changes of the heart. 3. Diffuse interstitial prominence suggestive of CHF. This appearance is likely exaggerated by low chari ng volumes.
[2025-05-28 17:09] LABS: CREATININE 1.10 MG/DL (0.60-1.10); TOTAL CARBON DIOXIDE 25.4 MMOL/L (24-32); eCRCL 75 ML/MIN; eGFR 67 ML/MIN
[2025-05-28 17:55] LABS: PHOSPHORUS 4.4 MG/DL (2.3-4.5)
[2025-05-28] MEDS: ceFAZolin 2gm/dext,iso 50mL 50 ML IV SCH (23:39)
[2025-05-29] VITALS (34 sets, daily range): BP systolic 91–138; BP diastolic 40–69; PULSE 83–121; RESP 12–39; O2SAT 92–97
[2025-05-29 01:01] LABS: MEAN PLATELET VOLUME 6.9 FL (7.4-10.4); RED CELL DISTRIBUTION WIDTH 14.4 % (11.5-14.5)
[2025-05-29 01:12] LABS: CREATININE 1.06 MG/DL (0.60-1.10); PHOSPHORUS 2.6 MG/DL (2.3-4.5); TOTAL CARBON DIOXIDE 24.6 MMOL/L (24-32); eCRCL 77 ML/MIN; eGFR 70 ML/MIN
[2025-05-29 03:45] LABS: ABG BASE EXCESS -0.7 mmol/L (-2.0-3.0); ABG HCO3 21.9 mmol/L (21.0-28.0); ABG OXYGEN SATURATION 97.1 % (94.0-98.0); ABG PCO2 (T) 28.6 mmHg (35.0-48.0); ABG PH (T) 7.501 (7.350-7.450); ABG PO2 (T) 90.6 mmHg (83.0-108.0); FCOHb 0.6 % (0.5-1.5); FHHb 2.9 % (0.0-5.0); FIO2 40.0 mmHg/%; FMetHb 0.3 % (0.0-1.5); FO2Hb 96.2 % (94.0-98.0); MODE VENT - SIMV; PATIENT TEMPERATURE 37.0; PEEP 8 cm H2O; RESPIRATORY RATE 16 b/min; TIDAL VOLUME 600 mL; TOTAL HEMOGLOBIN 9.4 G/dl (13.5-17.5)
[2025-05-29] MEDS: albumin (Human) 5% 250ml 250 ML IV ONE (04:07)
--- NOTE | 2025-05-29 08:52 | RADIOLOGY REPORT ---
CHEST RADIOGRAPH Indication: POST OP Technique: Single frontal view of the chest was obtained COMPARISON: DI CHEST,SINGLE VIEW on DOS: 05/28/25, DI CHEST,SINGLE VIEW on DOS: 05/28/25, DI CHEST,SING LE VIEW on DOS: 05/27/25, DI CHEST,TWO VIEWS on DOS: 05/26/25 FINDINGS: Lines and Tubes: Endotracheal tube, enteric catheter, right central venous catheter, right swan-Jacqueline and left chest pacemaker are unchanged. Left chest tube unchanged. Median sternotomy Lungs: Patchy bilateral airspace disease Pleura: No effusion. No pneumothorax. Cardiomediastinal contours: Cardiomegaly Bones: Unremarkable IMPRESSION: Lines and tubes in satisfactory position. No significant interval change.
--- NOTE | 2025-05-29 09:20 | PROGRESS NOTE ---
Progress Note CV Providers to CC ~ Progress Note: POD#2 CABG Central Line/PICC still needed: Yes Central Line/Picc Necessity: Hemodynamic Monitoring [place] Indications Met/Not Met: F/C Indications Met Antibiotics Ordered?: Yes If Yes, Indications?: Surgical prophylaxis Subjective Subjective Patient remains intubated. Following commands Objective Vitals Vital Signs Date Time Temp Pulse Resp B/P (MAP) Pulse Ox O2 Delivery O2 Flow Rate FiO2 05/29/25 08:58 31 05/29/25 08:56 113 96 35 05/29/25 05:56 98.8 127/56 (79) Mechanical Ventilator 124/51 (77) 05/28/25 15:26 4.0 Lab Results: 05/29/25 0046 05/29/25 0046 Objective Lungs with occasional crackles anteriorly. Sternal incision clean dry. Cardiac exam regular rate and rhythm with a murmur or rub. Chest tube output moderate without air leak Coagulation Studies Laboratory Tests Test 05/27/25 14:18 05/27/25 17:05 05/27/25 17:13 05/27/25 17:20 Patient Sex (Coag) M Patient Height (Coag) 185cm Patient Weight (Coag) 131.0 KG Patient Blood Volume 8505 ML Pump Volume 1500 ML Total Blood Volume 10951 ML Projected Heparin Concentration 1.7 MG/KG Heparin [place] 146 Calculated Heparin Bolus 39766 UNITS Activated Coagulation Time Baseline 138 SEC (101-148) Activated Coag Time 1.70 U/mL 307 SEC (193-297) H Activated Coag Time 2.84 U/mL 487 SEC (260-420) H Coagulation Comments Coagulation Clinical Comments Heparin Level (COAG) 0 MG/KG Calculated Heparin Req (Hep Assay) 28114 UNITS Calculated Protamine Req (Hep Assay 0 MG Activated Clotting Time 105 SEC (101-148) Prothrombin Time 12.7 SECONDS (9.0-12.0) H INR International Normalized Ratio 1.3 INR Activated Partial Thromboplast Time 27 SECONDS (22-32) Fibrinogen 269 MG/DL (177-424) Cardiac Rhythm: Sinus Rhythm, V Paced Problem\Assessment\Plan Additional Plan Patient progressing following high-risk currently bypass grafting. Hemodynamic satisfactory today. We will discontinue swollen. We will give a low dose of Lasix this morning for some postoperative volume overload. Work toward extubation this morning. Push incentive spirometry and begin to mobilize. Hold off beta blockade until off dobutamine. MAXIMO DENNIS III, MD May 29, 2025 09:20
[2025-05-29] MEDS ORDERED: DEXTROSE 15 GM of carb/4 tabs (each vial/BOTTLE has 4 tablets) PO PRN ×2 (09:30)
[2025-05-29] MEDS ORDERED: dextrose 50%-water 50ml dispensing syringe IV PRN ×2 (09:30)
[2025-05-29] MEDS ORDERED: glucagon, human recombinant 1mg kit SUBCUT PRN (09:30)
[2025-05-29] MEDS: INSULIN LISPRO 100 UNIT/ML INSULN.PEN MULTI-DOSE SQ SCH (12:00)
[2025-05-29] MEDS: pantoprazole 40mg Tablet.DR PO SCH (14:25)
[2025-05-29] MEDS: heparin, porcine 5000 units/ml vial SQ SCH (16:04)
[2025-05-29] MEDS: insulin glargine (Lantus) pen - multi-dose SQ SCH (20:52)
[2025-05-30] VITALS (32 sets, daily range): BP systolic 90–132; BP diastolic 49–68; PULSE 73–103; RESP 8–25; O2SAT 89–99
[2025-05-30 04:49] LABS: MEAN PLATELET VOLUME 7.2 FL (7.4-10.4); RED CELL DISTRIBUTION WIDTH 14.9 % (11.5-14.5)
[2025-05-30 04:50] LABS: CREATININE 1.41 MG/DL (0.60-1.10); TOTAL CARBON DIOXIDE 26.9 MMOL/L (24-32); eCRCL 58 ML/MIN; eGFR 50 ML/MIN
--- NOTE | 2025-05-30 07:03 | RADIOLOGY REPORT ---
CHEST RADIOGRAPH Indication: POST OP Technique: Single frontal view of the chest was obtained COMPARISON: DI CHEST,SINGLE VIEW on DOS: 05/29/25, DI CHEST,SINGLE VIEW on DOS: 05/28/25, DI CHEST,SING LE VIEW on DOS: 05/28/25, DI CHEST,SINGLE VIEW on DOS: 05/27/25, DI CHEST,TWO VIEWS on DOS: 05/26/25 FINDINGS: Lines and Tubes: Status post interval extubation and removal of enteric catheter. Remaining lines an d tubes unchanged. Left anterior chest wall cardiac pacing device. Lungs: Small bilateral pleural effusions and patchy multifocal bilateral pulmonary airspace disease. No pneumothorax. Cardiomediastinal contours: Cardiomegaly status post median sternotomy. Atrial appendage closure amina ce. Bones: Unremarkable IMPRESSION: 1. Patchy multifocal bilateral pulmonary airspace disease and small bilateral pleural effusions. 2. Cardiomegaly. 3. Status post interval extubation and removal of enteric catheter with the remaining lines and tubes unchanged.
--- NOTE | 2025-05-30 08:53 | PROGRESS NOTE ---
Progress Note CV Providers to CC ~ Antibiotics Ordered?: No Subjective Subjective S/P CABG x 4 POD # 3. Sitting at bedside, getting ready to get up to chair. Levophed is currently off. He is on 1 of dobutamine. Objective Vitals Vital Signs Date Time Temp Pulse Resp B/P (MAP) Pulse Ox O2 Delivery O2 Flow Rate FiO2 05/30/25 08:42 20 05/30/25 08:00 98.4 89 114/68 (83) 93 High Flow Nasal Cannula 10.0 05/30/25 00:00 58 Lab Results: 05/30/25 0410 05/30/25 0410 Objective Lungs - diminished at bases Heart - RRR, V paced via PPM Abd/Extr - OK Incisions - CDI dsgs Coagulation Studies Laboratory Tests Test 05/27/25 14:18 05/27/25 17:05 05/27/25 17:13 05/27/25 17:20 Patient Sex (Coag) M Patient Height (Coag) 185cm Patient Weight (Coag) 131.0 KG Patient Blood Volume 8505 ML Pump Volume 1500 ML Total Blood Volume 35912 ML Projected Heparin Concentration 1.7 MG/KG Heparin [place] 146 Calculated Heparin Bolus 97705 UNITS Activated Coagulation Time Baseline 138 SEC (101-148) Activated Coag Time 1.70 U/mL 307 SEC (193-297) H Activated Coag Time 2.84 U/mL 487 SEC (260-420) H Coagulation Comments Coagulation Clinical Comments Heparin Level (COAG) 0 MG/KG Calculated Heparin Req (Hep Assay) 80728 UNITS Calculated Protamine Req (Hep Assay 0 MG Activated Clotting Time 105 SEC (101-148) Prothrombin Time 12.7 SECONDS (9.0-12.0) H INR International Normalized Ratio 1.3 INR Activated Partial Thromboplast Time 27 SECONDS (22-32) Fibrinogen 269 MG/DL (177-424) Cardiac Rhythm: V Paced Problem\Assessment\Plan Additional Plan POD # 3 Wean Dobutamine off. Continue gentle diuresis. Mobilize. Will DC mediastinal drains. Sepsis Screening Reassessment Date: May 30, 2025 Supervising Co-signing Provider: VINCENZO Mg May 30, 2025 08:53
[2025-05-30] MEDS: DOBUTamine-DoBUTrex 500mg/D5W 250 ML IV SCH (09:25)
[2025-05-30] MEDS: albumin (human) 25% 100 ML IV solution IV ONE ×2 (16:00→18:42)
[2025-05-30 19:04] LABS: ABG BASE EXCESS -4.9 mmol/L (-2.0-3.0); ABG HCO3 21.6 mmol/L (21.0-28.0); ABG OXYGEN SATURATION 93.1 % (94.0-98.0); ABG PCO2 (T) 45.4 mmHg (35.0-48.0); ABG PH (T) 7.292 (7.350-7.450); ABG PO2 (T) 73.8 mmHg (83.0-108.0); FCOHb 0.8 % (0.5-1.5); FHHb 6.8 % (0.0-5.0); FIO2 52.0 mmHg/%; FLOW 8 L/min; FMetHb 0.3 % (0.0-1.5); FO2Hb 92.1 % (94.0-98.0); MODE HIGH FLOW salter; PATIENT TEMPERATURE 36.4; TOTAL HEMOGLOBIN 9.3 G/dl (13.5-17.5)
[2025-05-31] VITALS (33 sets, daily range): BP systolic 97–139; BP diastolic 35–83; PULSE 73–97; RESP 8–23; O2SAT 85–98
[2025-05-31 02:16] LABS: MEAN PLATELET VOLUME 6.8 FL (7.4-10.4); RED CELL DISTRIBUTION WIDTH 14.5 % (11.5-14.5)
[2025-05-31 02:26] LABS: CREATININE 1.99 MG/DL (0.60-1.10); TOTAL CARBON DIOXIDE 27.2 MMOL/L (24-32); eCRCL 41 ML/MIN; eGFR 34 ML/MIN
--- NOTE | 2025-05-31 06:08 | RADIOLOGY REPORT ---
CHEST RADIOGRAPH Indication: chest tubes Technique: Single frontal view of the chest was obtained COMPARISON: DI CHEST,SINGLE VIEW on DOS: 05/30/25, DI CHEST,SINGLE VIEW on DOS: 05/29/25, DI CHEST,SING LE VIEW on DOS: 05/28/25, DI CHEST,SINGLE VIEW on DOS: 05/28/25, DI CHEST,SINGLE VIEW on DOS: 05/27/25 FINDINGS: Lines and Tubes: Unchanged. Left anterior chest wall cardiac pacing device. Lungs: Stable appearing bibasilar pulmonary airspace disease and small bilateral pleural effusions. No pneumothorax. Cardiomediastinal contours: Cardiomegaly status post median sternotomy. Bones: Unremarkable IMPRESSION: 1. Stable cardiomegaly, bibasilar pulmonary airspace disease and small bilateral pleural effusions. 2. Lines and tubes unchanged.
[2025-05-31 06:54] LABS: PHOSPHORUS 6.1 MG/DL (2.3-4.5)
--- NOTE | 2025-05-31 10:02 | PROGRESS NOTE ---
Progress Note CV Providers to CC ~ Antibiotics Ordered?: No Subjective Subjective S/P CABG x 4 POD # 4. Dobutamine was turned off yesterday, but he got a bit hypotensive so it was restarted. Objective Vitals Vital Signs Date Time Temp Pulse Resp B/P (MAP) Pulse Ox O2 Delivery O2 Flow Rate FiO2 05/31/25 09:00 97.9 86 23 125/53 (77) 94 High Flow Nasal Cannula 6.0 05/30/25 12:37 44 Lab Results: 05/31/25 0205 05/31/25 0205 Objective Lungs - a bit diminished at bases. Just coughed up a large plug Heart - RRR, paced Abd/Extr - OK Incisions - CDI Coagulation Studies Laboratory Tests Test 05/27/25 14:18 05/27/25 17:05 05/27/25 17:13 05/27/25 17:20 Patient Sex (Coag) M Patient Height (Coag) 185cm Patient Weight (Coag) 131.0 KG Patient Blood Volume 8505 ML Pump Volume 1500 ML Total Blood Volume 49662 ML Projected Heparin Concentration 1.7 MG/KG Heparin [place] 146 Calculated Heparin Bolus 34572 UNITS Activated Coagulation Time Baseline 138 SEC (101-148) Activated Coag Time 1.70 U/mL 307 SEC (193-297) H Activated Coag Time 2.84 U/mL 487 SEC (260-420) H Coagulation Comments Coagulation Clinical Comments Heparin Level (COAG) 0 MG/KG Calculated Heparin Req (Hep Assay) 24379 UNITS Calculated Protamine Req (Hep Assay 0 MG Activated Clotting Time 105 SEC (101-148) Prothrombin Time 12.7 SECONDS (9.0-12.0) H INR International Normalized Ratio 1.3 INR Activated Partial Thromboplast Time 27 SECONDS (22-32) Fibrinogen 269 MG/DL (177-424) Cardiac Rhythm: V Paced Problem\Assessment\Plan Additional Plan POD # 4 Dobutamine continues at 1 His creat francisco to 1.99 (baseline 1.47) UOP OK, castillo seems positional. Will DC [place]. DC pleural drains. Continue ambulation/ PT Sepsis Screening Reassessment Date: May 31, 2025 Supervising Co-signing Provider: VINCENZO Mg May 31, 2025 10:02
[2025-05-31] MEDS: JUVEN Smoothie Arginine/Glut./Ca2+Bmb (Juven 19.3pkt) 240ml cup PO SCH (17:26)
[2025-06-01] VITALS (22 sets, daily range): BP systolic 93–132; BP diastolic 54–78; PULSE 65–80; RESP 12–27; TEMP 97.8–98.6; O2SAT 91–99
[2025-06-01 02:42] LABS: MEAN PLATELET VOLUME 6.6 FL (7.4-10.4); RED CELL DISTRIBUTION WIDTH 14.1 % (11.5-14.5)
[2025-06-01 02:55] LABS: CREATININE 1.26 MG/DL (0.60-1.10); TOTAL CARBON DIOXIDE 29.7 MMOL/L (24-32); eCRCL 65 ML/MIN; eGFR 57 ML/MIN
--- NOTE | 2025-06-01 08:26 | PROGRESS NOTE ---
Progress Note CV Providers to CC ~ Antibiotics Ordered?: No Subjective Subjective S/P CABG x 4 POD # 5. Walked yesterday about 30 feet - 2 person assist. He is still on 6L NC. Objective Vitals Vital Signs Date Time Temp Pulse Resp B/P (MAP) Pulse Ox O2 Delivery O2 Flow Rate FiO2 06/01/25 07:17 18 06/01/25 07:17 77 06/01/25 07:13 96 6.0 06/01/25 06:00 114/68 (83) High Flow Nasal Cannula 06/01/25 05:00 97.7 05/31/25 23:13 44 Lab Results: 06/01/25 0230 06/01/25 0230 Objective Lungs - diminished at bases Heart - RRR, PPM Abd/Extr - OK, 1+ ankle edema Incisions - CDI Coagulation Studies Laboratory Tests Test 05/27/25 14:18 05/27/25 17:05 05/27/25 17:13 05/27/25 17:20 Patient Sex (Coag) M Patient Height (Coag) 185cm Patient Weight (Coag) 131.0 KG Patient Blood Volume 8505 ML Pump Volume 1500 ML Total Blood Volume 60622 ML Projected Heparin Concentration 1.7 MG/KG Heparin [place] 146 Calculated Heparin Bolus 21203 UNITS Activated Coagulation Time Baseline 138 SEC (101-148) Activated Coag Time 1.70 U/mL 307 SEC (193-297) H Activated Coag Time 2.84 U/mL 487 SEC (260-420) H Coagulation Comments Coagulation Clinical Comments Heparin Level (COAG) 0 MG/KG Calculated Heparin Req (Hep Assay) 40643 UNITS Calculated Protamine Req (Hep Assay 0 MG Activated Clotting Time 105 SEC (101-148) Prothrombin Time 12.7 SECONDS (9.0-12.0) H INR International Normalized Ratio 1.3 INR Activated Partial Thromboplast Time 27 SECONDS (22-32) Fibrinogen 269 MG/DL (177-424) Cardiac Rhythm: V Paced Problem\Assessment\Plan Additional Plan POD # 5 Creat downtrending. Off Dobutamine. Diurese as able. Will likely benefit from rehab placement. Sepsis Screening Reassessment Date: Jun 01, 2025 Supervising Co-signing Provider: VINCENZO Mg Jun 01, 2025 08:26
[2025-06-01] MEDS ORDERED: potassium Cl 20mEq/100mL bag 100 ML IV PRN (08:30)
[2025-06-01] MEDS ORDERED: magnesium sulf-water 4G/100mL 100 ML IV PRN (08:30)
[2025-06-01] MEDS ORDERED: potassium Cl 20 mEq SR tablet PO PRN ×2 (08:30)
[2025-06-01] MEDS ORDERED: potassium Cl 40MEQ/270ML bag 250 ML IV PRN (08:30)
[2025-06-01] MEDS: magnesium citrate 296ml oral solution PO ONE (08:30)
[2025-06-01] MEDS ORDERED: potassium Cl 40MEQ/1/2NS 520ml 520 ML IV PRN (08:30)
[2025-06-01] MEDS ORDERED: potassium CL 10mEq/100ml bag 100 ML IV PRN (08:30)
[2025-06-01] MEDS ORDERED: magnesium sulf-water 2g/50mL 50 ML IV PRN (08:30)
[2025-06-01] MEDS: magnesium Cl slow-release 64mg tablet PO SCH (20:00)
[2025-06-02] VITALS (7 sets, daily range): BP systolic 90–132; BP diastolic 59–80; PULSE 58–86; RESP 16–20; TEMP 97.6–98.6; O2SAT 92–100
--- NOTE | 2025-06-02 05:57 | ELECTROCARDIOGRAPH REPORT ---
[facility] Test Date: 2025-06-02 Test Time: 02:47:48 Pat Name: JUAN GARCIA Department: 3rd FLOOR PCU Room: [facility] [address] A Gender: M Teacher Hearing Impaired: : 1960 Requested By: VERONICA TA Order Number: [id number] Reading MD: Dr. DARIA Pendleton Measurements Intervals Stephan Rate: 67 P: 27 WV: 173 QRS: 193 QRSD: 133 T: 49 QT: 428 QTc: 452 Interpretive Statements Age not entered, assumed to be 49 years old for purpose of ECG interpretation Atrial-sensed ventricular-paced rhythm No further analysis attempted due to paced rhythm Electronically Signed On 06-02-2025 16:54:[address] DARIA Pendleton Please click the below link to view image of tracing.
[2025-06-02 06:46] LABS: MEAN PLATELET VOLUME 6.5 FL (7.4-10.4); RED CELL DISTRIBUTION WIDTH 14.3 % (11.5-14.5)
[2025-06-02 06:53] LABS: CREATININE 1.03 MG/DL (0.60-1.10); TOTAL CARBON DIOXIDE 30.4 MMOL/L (24-32); eCRCL 80 ML/MIN; eGFR 72 ML/MIN
--- NOTE | 2025-06-02 08:17 | PROGRESS NOTE ---
Progress Note CV Providers to CC ~ Antibiotics Ordered?: No Subjective Subjective S/P CABG x 4 POD # 6. He is alert and in good spirits. PT recommends rehab placement. Pt. is reluctant. Discussed benefits at length with him. Objective Vitals Vital Signs Date Time Temp Pulse Resp B/P (MAP) Pulse Ox O2 Delivery O2 Flow Rate FiO2 06/02/25 08:04 78 06/02/25 07:40 98.6 20 132/80 (97) 96 Nasal Cannula 06/02/25 02:00 5.0 06/01/25 17:44 40 Lab Results: 06/02/25 0608 06/02/25 0608 Objective Lungs - a bit diminshed at bases Heart - RRR, SR Abd/Extr - OK Incisions - CDI Coagulation Studies Laboratory Tests Test 05/27/25 14:18 05/27/25 17:05 05/27/25 17:13 05/27/25 17:20 Patient Sex (Coag) M Patient Height (Coag) 185cm Patient Weight (Coag) 131.0 KG Patient Blood Volume 8505 ML Pump Volume 1500 ML Total Blood Volume 72250 ML Projected Heparin Concentration 1.7 MG/KG Heparin [place] 146 Calculated Heparin Bolus 77800 UNITS Activated Coagulation Time Baseline 138 SEC (101-148) Activated Coag Time 1.70 U/mL 307 SEC (193-297) H Activated Coag Time 2.84 U/mL 487 SEC (260-420) H Coagulation Comments Coagulation Clinical Comments Heparin Level (COAG) 0 MG/KG Calculated Heparin Req (Hep Assay) 07576 UNITS Calculated Protamine Req (Hep Assay 0 MG Activated Clotting Time 105 SEC (101-148) Prothrombin Time 12.7 SECONDS (9.0-12.0) H INR International Normalized Ratio 1.3 INR Activated Partial Thromboplast Time 27 SECONDS (22-32) Fibrinogen 269 MG/DL (177-424) Cardiac Rhythm: V Paced Problem\Assessment\Plan Additional Plan POD # 6 SR CV stable Will benefit from rehab. DC planning to arrange. Can go anytime. Sepsis Screening Reassessment Date: Jun 02, 2025 Supervising Co-signing Provider: VINCENZO Mg Jun 02, 2025 08:17
[2025-06-03] VITALS (8 sets, daily range): BP systolic 91–115; BP diastolic 52–70; PULSE 69–101; RESP 12–19; TEMP 97.1–98.5; O2SAT 94–98
[2025-06-03 07:37] LABS: MEAN PLATELET VOLUME 6.7 FL (7.4-10.4); RED CELL DISTRIBUTION WIDTH 14.3 % (11.5-14.5)
[2025-06-03 07:51] LABS: CREATININE 1.05 MG/DL (0.60-1.10); TOTAL CARBON DIOXIDE 32.7 MMOL/L (24-32); eCRCL 78 ML/MIN; eGFR 71 ML/MIN
--- NOTE | 2025-06-03 09:00 | PROGRESS NOTE ---
Progress Note CV Providers to CC ~ Antibiotics Ordered?: No Subjective Subjective S/P CABG x 4 POD # 7. Up to chair for breakfast. Didn't walk yesterday d/t staffing. The day before walked 70-100 feet. Told DC planners that he refuses rehab and has lots of help at home. Wants to go home today and is now down to 3L NC. He is on 3L at night at home. Objective Vitals Vital Signs Date Time Temp Pulse Resp B/P (MAP) Pulse Ox O2 Delivery O2 Flow Rate FiO2 06/03/25 08:00 74 06/03/25 02:00 97.2 15 115/70 (85) 94 Nasal Cannula 3.0 06/02/25 08:30 40 Lab Results: 06/03/25 0617 06/03/25 0617 Objective Lungs - diminished at bases Heart - RRR, SR Abd/Extr - OK, 1+ edema Incisions - CDI Coagulation Studies Laboratory Tests Test 05/27/25 14:18 05/27/25 17:05 05/27/25 17:13 05/27/25 17:20 Patient Sex (Coag) M Patient Height (Coag) 185cm Patient Weight (Coag) 131.0 KG Patient Blood Volume 8505 ML Pump Volume 1500 ML Total Blood Volume 74772 ML Projected Heparin Concentration 1.7 MG/KG Heparin [place] 146 Calculated Heparin Bolus 98915 UNITS Activated Coagulation Time Baseline 138 SEC (101-148) Activated Coag Time 1.70 U/mL 307 SEC (193-297) H Activated Coag Time 2.84 U/mL 487 SEC (260-420) H Coagulation Comments Coagulation Clinical Comments Heparin Level (COAG) 0 MG/KG Calculated Heparin Req (Hep Assay) 88417 UNITS Calculated Protamine Req (Hep Assay 0 MG Activated Clotting Time 105 SEC (101-148) Prothrombin Time 12.7 SECONDS (9.0-12.0) H INR International Normalized Ratio 1.3 INR Activated Partial Thromboplast Time 27 SECONDS (22-32) Fibrinogen 269 MG/DL (177-424) Cardiac Rhythm: Sinus Rhythm, V Paced, AV Paced, Paced Problem\Assessment\Plan Additional Plan POD # 7 Needs to ambulate. Refuses rehab. Will plan to DC home tomorrow. Sepsis Screening Reassessment Date: Jun 03, 2025 Supervising Co-signing Provider: VINCENZO Mg Jun 03, 2025 09:00
--- NOTE | 2025-06-03 09:21 | OPERATIVE REPORT ---
Operative Report Operative Report Cardiovascular surgery operative report 27 May 2025 Preoperative diagnosis: Severe three-vessel coronary disease, severe left ventricular dysfunction, obesity, moderate COPD, grade 3 chronic kidney disease Postop diagnosis: Same with the addition of severe pulmonary hypertension Procedure: Coronary artery bypass grafting x4 placing the left internal mammary artery to the LAD, a sequential reverse saphenous vein graft to the 1st diagonal and ramus and a reverse saphenous vein graft to the right posterior descending. Surgeon: Dr. Silvano Palacios pastoral assistant: Dr.Paul Matthew and Forest Hahn PA-C Anesthesia: General endotracheal tube Complications: None EBL: 200 mL Procedure: The patient is taken to the operating room placed in supine position. Following the induction of general oral endotracheal anesthesia and the placement of appropriate lines the anterior chest, abdomen and bilateral lower extremities were prepped and draped sterilely. It was noted on insertion of the [place] that he had systemic pulmonary artery pressures which were unsuspected. The greater saphenous vein was removed from the right leg endosco pically. Side branches were controlled with electrocautery. It was ligated proximally and distally and then excised. Side branches were ligated with 4-0 silk. It was set aside. This incision was closed in two layers absorbable suture. At the same time a median sternotomy was performed in the left pleural space was widely opened. The left internal mammary artery was dissected free from the anterior chest wall. The patient was systemically heparinized and after 3 minutes the RICARDO was divided at the diaphragm, ligating it distally with 0 silk. The pericardium was opened in midline and suspended. Single aortic and dual stage right atrial cannula were then placed. After ensuring an ACT of greater than 300 seconds cardiopulmonary bypass was instituted. The distal anastomosis were done on a beating heart using cardiopulmonary bypass for hemodynamic support. An epicardial stabilizer was utilized to facilitate the anastomosis. They were done with running seven 0 Prolene, probing prior to tying the suture line to ensure patency. The 1st bypass performed was the left internal mammary artery to the LAD. A slit was cut in the left superior pericardium to allow the RICARDO tied medial to lung without tension. It was cut to length and distal end was spatulated. It was then anastomosed in end-to-side fashion to the mid LAD. This has a 1-1/2 mm and somewhat calcified vessel. The bulldog clamps were removed from the RICARDO pedicle to restore flow. The pedicle was tacked to the epicardium with interrupted five 0 Prolene sutures. A sequential graft was then fashioned to the anterolateral wall placing an end-to-side anastomosis to the 1 mm ramus and a [id number] anastomosis to the 2 mm diagonal. Finally a reverse saphenous vein graft was anastomosed in end-to-side fashion to the 2 mm of right posterior descending. A partial occluding clamp was then placed in the ascending aorta and two aortotomies were created with a 4 mm punch. This allowed the proximal anastomosis with the vein grafts to be performed. Each was done in end-to-side fashion with running six 0 Prolene. Proximal markers were placed. The clamp was removed and the vein grafts were de-aired. Flow restored to the entire coronary circulation. Temporary pacing wires were then placed the anterior surface of the right ventricle and right atrium. Ventilation was resumed and the patient was allowed to begin ejecting to a pressure of approximately 70-80 mm systolic. He was started on dobutamine as well as low-dose Levophed. He was slowly weaned from cardiopulmonary bypass and successfully decannulated in standard fashion. Protamine solution was administered to reverse heparinization and careful hemostasis was achieved throughout the mediastinum. Due to his severe pulmonary hypertension and right ventricular enlargement it was felt prudent to not close his chest at this time. Therefore a 28 [place] drain was placed in the lef t pleural space with a 32 [place] straight chest tube placed anterior to the mediastinum and a 2nd 28 [place] to the diaphragmatic aspect of the pericardium. These were all secured to skin with 1. Silk. The chest was then covered with an [place] dressing for sterile coverage. The chest tube was attached to water-seal. The patient was then returned to the ICU in critical condition having tolerated the procedure reasonably well. There were no complications. Sponge, needle and instrument counts were correct x2 and of the case. Forest Hahn PA-C was present for and assisted throughout the entire procedure. SILVANO PALACIOS III, MD Jun 03, 2025 09:21
[2025-06-03] MEDS ORDERED: OXYC1TAB17 PO (09:22)
[2025-06-03] MEDS ORDERED: LOP12.5T PO (09:22)
[2025-06-03] MEDS ORDERED: ASPI81TA53 PO (09:22)
--- NOTE | 2025-06-03 11:04 | RADIOLOGY REPORT ---
CHEST RADIOGRAPH Indication: s/p CABG Technique: Single frontal view of the chest was obtained Comparison: DI CHEST,SINGLE VIEW on DOS: 05/31/25, DI CHEST,SINGLE VIEW on DOS: 05/30/25, DI CHEST,SING LE VIEW on DOS: 05/29/25, DI CHEST,SINGLE VIEW on DOS: 05/28/25, DI CHEST,SINGLE VIEW on DOS: 05/28/25, DI CHEST,SINGLE VIEW on DOS: 05/31/25 FINDINGS: Lines and Tubes: Right central venous catheter removed. Left anterior chest wall cardiac pacing amina ce. Lungs: Stable appearing bibasilar pulmonary airspace disease and small bilateral pleural effusions. No pneumothorax. Cardiomediastinal contours: Cardiomegaly status post median sternotomy. Bones: Unremarkable IMPRESSION: 1. Stable cardiomegaly, bibasilar pulmonary airspace disease and small bilateral pleural effusions. 2. Lines and tubes unchanged.
[2025-06-04 02:00] VITALS: BP 111/66; PULSE 75; RESP 18; TEMP 97.4; O2SAT 97
[2025-06-04 06:00] VITALS: BP 117/58; PULSE 93; RESP 13; TEMP 97.8; O2SAT 98
[2025-06-04 07:29] LABS: MEAN PLATELET VOLUME 6.4 FL (7.4-10.4); RED CELL DISTRIBUTION WIDTH 14.1 % (11.5-14.5)
[2025-06-04 07:41] LABS: CREATININE 1.20 MG/DL (0.60-1.10); TOTAL CARBON DIOXIDE 32.7 MMOL/L (24-32); eCRCL 68 ML/MIN; eGFR 61 ML/MIN
[2025-06-04 08:00] VITALS: RESP 18; O2SAT 90
--- NOTE | 2025-06-04 08:14 | PROGRESS NOTE ---
Progress Note CV Providers to CC ~ Antibiotics Ordered?: No Subjective Subjective S/P CABG x 4 POD # 8. He is alert and in good spirits. Walking went better yesterday though he does still get SOB quite easily. He is presently on room air and feels good at rest. I spoke with his by phone and relayed to her that our recommendation is rehab but he has refused. We discussed the importance of taking his diuretics, utilizing his spirometry and ambulating frequently. They have other family at home planning to help him. Objective Vitals Vital Signs Date Time Temp Pulse Resp B/P (MAP) Pulse Ox O2 Delivery O2 Flow Rate FiO2 06/04/25 06:30 88 06/04/25 06:00 97.8 13 117/58 (77) 98 Room Air 06/04/25 02:00 3.0 06/02/25 08:30 40 Lab Results: 06/04/25 0705 06/04/25 0705 Objective Lungs - diminished at bases, but a bit better today. Heart - RRR, SR Abd/Extr - Ok Incisions - CDI Coagulation Studies Laboratory Tests Test 05/27/25 14:18 05/27/25 17:05 05/27/25 17:13 05/27/25 17:20 Patient Sex (Coag) M Patient Height (Coag) 185cm Patient Weight (Coag) 131.0 KG Patient Blood Volume 8505 ML Pump Volume 1500 ML Total Blood Volume 72464 ML Projected Heparin Concentration 1.7 MG/KG Heparin [place] 146 Calculated Heparin Bolus 04414 UNITS Activated Coagulation Time Baseline 138 SEC (101-148) Activated Coag Time 1.70 U/mL 307 SEC (193-297) H Activated Coag Time 2.84 U/mL 487 SEC (260-420) H Coagulation Comments Coagulation Clinical Comments Heparin Level (COAG) 0 MG/KG Calculated Heparin Req (Hep Assay) 12879 UNITS Calculated Protamine Req (Hep Assay 0 MG Activated Clotting Time 105 SEC (101-148) Prothrombin Time 12.7 SECONDS (9.0-12.0) H INR International Normalized Ratio 1.3 INR Activated Partial Thromboplast Time 27 SECONDS (22-32) Fibrinogen 269 MG/DL (177-424) Cardiac Rhythm: Sinus Rhythm, Sinus Tachycardia, V Paced, AV Paced, Paced Problem\Assessment\Plan Additional Plan POD # 8 WBC's downtrending. Needs to push spirometry and ambulation. Currently he is on room air DC home. Continue diuresis. Will need to f/u with pulmonology for pulm htn. I relayed this to both pt and Sepsis Screening Reassessment Date: Jun 04, 2025 Supervising MD Co-signing Provider: VINCENZO Wahl Jun 04, 2025 08:14
[2025-06-04 08:34] VITALS: BP_SYST 117; PULSE 93
[2025-06-04 09:05] VITALS: RESP 13; O2SAT 98
--- NOTE | 2025-06-04 10:18 | DISCHARGE SUMMARY ---
DATE OF DISCHARGE: 06/04/2025 DICTATING PHYSICIAN: Forest Hahn ADMITTING PHYSICIAN: Silvaon Palacios MD COMPUTER DRAFTER: Ashely Pierce MD PREOPERATIVE DIAGNOSES: Severe multivessel coronary artery disease, history of obesity, history of a prior rct-br-[id number] cardiac arrest with CPR and subsequent stent implantation, ischemic cardiomyopathy, atrial fibrillation. DISCHARGE DIAGNOSES: Severe multivessel coronary artery disease, history of obesity, history of a prior qhc-nx-ihleljel cardiac arrest with CPR and subsequent stent implantation, ischemic cardiomyopathy, atrial fibrillation, status post coronary artery bypass grafting x 4 and closure of his chest on postop day #1. COMPLICATIONS: Postoperatively none. CONDITION ON DISCHARGE: Stable. PROGNOSIS: Good. SUMMARY: This is a 65-year-old gentleman who has a fairly longstanding history of coronary artery disease. He has a prior history of the pyb-[id number]-bpfpgvuy cardiac arrest as mentioned with CPR and subsequent stent implantation of the LAD and right coronary. Unfortunately, he has ischemic cardiomyopathy with reduced EF around 20-25%. Due to increasing difficulties with chest pain and shortness of breath, he underwent repeat cardiac catheterization demonstrating multivessel coronary artery disease. He also has a history of obstructive sleep apnea. He was taken to the operating room electively on 05/27/2025, name of the operation is coronary artery bypass graft surgery x 4 with a left internal mammary artery to the LAD, saphenous vein graft to the diagonal and ramus and the PDA. Of note, the patient had anterior apical scarring and thinning. Of significance as the patient was noted to have markedly elevated pulmonary pressures and his chest was left open initially and he was taken back to the operating room postop day #1 for sternal closure. Subsequently, the patient was extubated. Initially was maintained on dobutamine. Diuretics were initiated. By postop day #3, he was able to be mobilized. Levophed was weaned off and dobutamine was weaned off. Mediastinal drains were discontinued. The following day, his pleural drains were removed. Creatinine francisco to a peak of 1.99 above a baseline of 1.47. [place] was discontinued on postop day #4 as by that time it was positional. Physical therapy was initiated and their recommendation was for him to go to rehab; however, the patient adamantly refused and wishes to go home. Therefore, he was kept in the hospital a couple of additional days. Up until yesterday, he was on 3 liters nasal cannula, but today he is now on room air. He does get short of breath with ambulation. His weight remains above his preop weight and he will certainly benefit from ongoing diuretics. He has been fluid negative for the past couple of days and trending in the right direction. DISCHARGE PROGRAM: As follows. Followup appointment with Dr. Palacios's office in [address] Pierce in 4 weeks and with his primary physician at 6 weeks. ACTIVITY: As per cardiac rehab instructions. He is instructed to take short showers, to ambulate frequently, to continue use of his spirometry. These things were reviewed with the as I spoke with her by phone as well. DIET: He will be on a carb-controlled diet. MEDICATIONS ON DISCHARGE: Include aspirin 81 mg p.o. daily, Lopressor 12.5 mg p.o. b.i.d., Percocet 10/325 mg 1 p.o. q. 6 hours p.r.n. pain, Lipitor 40 mg p.o. daily, Celexa 20 mg p.o. daily, furosemide 40 mg p.o. b.i.d., metformin 1000 mg p.o. daily, Protonix 40 mg p.o. daily, trazodone 50 mg p.o. at bedtime. He is on oxygen at 3 liters at night due to his sleep apnea. For now, his lisinopril and spironolactone will be on hold. The patient and his were counseled to potentially obtain a progress worker due to his pulmonary hypertension situation, although we do expect this may improve somewhat with revascularization. Forest Palacios MD TID: [id number] RECEIPT: [id number] DJ/RAINA cc: Silvano Palacios MD, Ashely Pierce MD
== END 2025-06-04 12:30 | disposition home health service (06) | DRG 235 ==
LOC: PAS IN 09:44 → CICU 2S 16:45 → PCU 3S 06-01 11:12
PROVIDERS: ADMIT Thoracic Surgery (Cardiothoracic Vascular Surgery); ATTEND Thoracic Surgery (Cardiothoracic Vascular Surgery)
PROC: 021209W Bypass Coronary Artery, Three Arteries from Aorta with Autologous Venous Tissue, Open Approach (ICD-10-PCS; 2025-05-27)
PROC: 06BP4ZZ Excision of Right Saphenous Vein, Percutaneous Endoscopic Approach (ICD-10-PCS; 2025-05-27)
PROC: B24BZZ4 Ultrasonography of Heart with Aorta, Transesophageal (ICD-10-PCS; 2025-05-27)
PROC: 5A1221Z Performance of Cardiac Output, Continuous (ICD-10-PCS; 2025-05-27)
PROC: 02100Z9 Bypass Coronary Artery, One Artery from Left Internal Mammary, Open Approach (ICD-10-PCS; principal; 2025-05-27 13:24)
PROC: 02L70CK Occlusion of Left Atrial Appendage with Extraluminal Device, Open Approach (ICD-10-PCS; 2025-05-28)
PROC: 0PQ00ZZ Repair Sternum, Open Approach (ICD-10-PCS; 2025-05-28)
DX: I25.10 Atherosclerotic heart disease of native coronary artery without angina pectoris (principal); N17.0 Acute kidney failure with tubular necrosis; I50.22 Chronic systolic (congestive) heart failure; I48.20 Chronic atrial fibrillation, unspecified; J98.11 Atelectasis; J44.9 Chronic obstructive pulmonary disease, unspecified; N18.30 Chronic kidney disease, stage 3 unspecified; I27.20 Pulmonary hypertension, unspecified; E87.70 Fluid overload, unspecified; E66.9 Obesity, unspecified; G47.33 Obstructive sleep apnea (adult) (pediatric); Z68.38 Body mass index [BMI] 38.0-38.9, adult
CPT/HCPCS: 36415; 36430; 36600; 71045; 71046; 80048; 80053; 81003; 82330; 82435; 82803; 82947; 82948; 83036; 83735; 84100; 84132; 84295; 84478; 85018; 85025; 85347; 85384; 85610; 85730; 86885; 86900; 86901; 86920; 87081; 93005; 93312; 93325; 93880; 93970; 94002; 94003; 94010; 94664; 94668; 94760; 97116; 97161; 97164; 97530; A4615; A4618; A4620; A6212; A6213; A6258; A6402; A6449; A6590; A7000; A7048; A9900; C1751; G0378; J0169; J0665; J0690; J1250; J1644; J1815; J1938; J2150; J2250; J2260; J2270; J2704; J3010; J3373; J3375; J3475; J3480; J3490; J7030; J7040; J7050; J7060; J7120; P9035; P9045; P9047